=== PATIENT | male | born 1970 | race Caucasian/White ===

== ENCOUNTER 2024-11-07 14:45 | Emergency (ER) | payer OTHER ==
[~2024-11-07] VITALS: Ht 177.8 cm; Wt 121.3 kg
[2024-11-07] MEDS ORDERED: OMEP-173 (14:59)
[2024-11-07] MEDS ORDERED: SYMB16INH (14:59)
[2024-11-07] MEDS ORDERED: ATOR1TAB19 (14:59)
[2024-11-07] MEDS ORDERED: LISI20TA33 (14:59)
[2024-11-07] MEDS ORDERED: VITA200016 (14:59)
[2024-11-07] MEDS ORDERED: METO1TAB7 (14:59)
[2024-11-07] MEDS ORDERED: DULO1CAP5 (14:59)
[2024-11-07] MEDS ORDERED: LORA-1041 (14:59)
[2024-11-07 17:30] VITALS: BP 203/109
[2024-11-07] MEDS: NIFEdipine 10 MG CAP PO ONE (17:30)
[2024-11-07] MEDS: lisinopriL 40MG TAB PO ONE (17:30)
[2024-11-07 18:04] LABS: INR 0.96; PROTHROMBIN TIME 13.1 SECONDS (12.5-14.5)
[2024-11-07 18:14] VITALS: BP 162/79; O2SAT 96
[2024-11-07 18:19] LABS: CK-MB VALUE MASS 1.1 NG/ML (<3.6)
[2024-11-07 18:20] LABS: ALBUMIN 3.6 G/DL (3.2-5.2); ALKALINE PHOSPHATASE 136 U/L (40-129); ALT/SGPT 31 U/L (7.0-40); AST/SGOT 18 U/L (<34); BILIRUBIN,DIRECT 0.1 MG/DL (<0.4); BILIRUBIN,TOTAL 0.4 MG/DL (0.3-1.2); BLOOD UREA NITROGEN 19 MG/DL (9-23); CALCIUM LEVEL 8.5 MG/DL (8.5-10.1); CARBON DIOXIDE LEVEL 26 MMOL/L (20-31); CHLORIDE LEVEL 109 MMOL/L (98-107); CREATININE FOR GFR 0.94 MG/DL (0.70-1.30); GLOMERULAR FILTRATION RATE > 60.0 (>56); GLUCOSE, FASTING 94 MG/DL (60-100); POTASSIUM SERUM 4.1 MMOL/L (3.5-5.1); SODIUM LEVEL 144 MMOL/L (136-145); TOTAL PROTEIN 6.5 G/DL (5.7-8.2)
[2024-11-07 18:26] LABS: CPK CREATINE PHOSPHOKINASE 94 U/L (46-171); MB/CK RELATIVE INDEX 1.17 (< OR =4)
[2024-11-07] MEDS ORDERED: LISI40TA4 PO (18:32)
[2024-11-07 18:35] VITALS: TEMP 97.9
== END 2024-11-07 18:47 | disposition home or self-care (01) ==
LOC: M ED 14:45
DX: I10 Essential (primary) hypertension (principal); J98.11 Atelectasis; J44.9 Chronic obstructive pulmonary disease, unspecified; Z88.2 Allergy status to sulfonamides; Z88.0 Allergy status to penicillin; Z88.8 Allergy status to other drugs, medicaments and biological substances; Z91.041 Radiographic dye allergy status; Z79.899 Other long term (current) drug therapy
CPT/HCPCS: 36415; 71045; 80048; 80076; 82550; 82553; 84484; 85610; 93005; 99284; G0463

== ENCOUNTER → 2024-11-07 | Outpatient (CLI) | payer OTHER ==
[~2024-11-07] MED LIST: ATOR1TAB19; DULO1CAP5; LISI20TA33; LISI40TA4 PO; LORA-1041; METO1TAB7; OMEP-173; SYMB16INH; VITA200016
== END ==
LOC: M PAIN 13:00
PROVIDERS: ATTEND Anesthesiology
DX: M54.6 Pain in thoracic spine (principal); M54.50 Low back pain, unspecified; M79.10 Myalgia, unspecified site; M79.18 Myalgia, other site; J45.909 Unspecified asthma, uncomplicated; F32.A Depression, unspecified; F41.9 Anxiety disorder, unspecified; K21.9 Gastro-esophageal reflux disease without esophagitis; E78.5 Hyperlipidemia, unspecified; I10 Essential (primary) hypertension; E66.9 Obesity, unspecified; E55.9 Vitamin D deficiency, unspecified; Z87.891 Personal history of nicotine dependence; Z88.0 Allergy status to penicillin; Z88.2 Allergy status to sulfonamides; Z88.6 Allergy status to analgesic agent; Z91.041 Radiographic dye allergy status; Z88.8 Allergy status to other drugs, medicaments and biological substances; Z68.38 Body mass index [BMI] 38.0-38.9, adult; Z79.899 Other long term (current) drug therapy